=== PATIENT | male | born 1940 | race Two or more races ===

== ENCOUNTER 2023-10-13 15:40 | Inpatient (IN) | payer MEDICARE, OTHER ==
[~2023-10-13] VITALS: Ht 162.6 cm; Wt 80.3 kg
[2023-10-13] MEDS ORDERED: DEXT15DR6 EACHEYE (16:30)
[2023-10-13] MEDS ORDERED: POLY15DR40 EACHEYE (16:30)
[2023-10-13] MEDS ORDERED: MAG30ORA PO (16:30)
[2023-10-13] MEDS ORDERED: ACET-868 PO (16:30)
[2023-10-13] MEDS ORDERED: DIVA125C2 PO (16:30)
[2023-10-13] MEDS ORDERED: CEPH500C2 PO (16:30)
[2023-10-13] MEDS ORDERED: LOSA50TA39 PO (16:30)
[2023-10-13] MEDS ORDERED: TRAZ-182 PO (16:30)
[2023-10-13] MEDS ORDERED: ASPI-1169 PO (16:30)
[2023-10-13] MEDS ORDERED: HYDR-500 PO (16:30)
[2023-10-13] MEDS ORDERED: PIPERACILLIN /TAZOBACTAM 3.375 G in IV D5W 50 ML IV ONE (16:30)
[2023-10-13] MEDS ORDERED: DOCU-141 PO (16:30)
[2023-10-13] MEDS ORDERED: POTA20PA3 PO (16:30)
[2023-10-13] MEDS ORDERED: CELE200C PO (16:30)
[2023-10-13] MEDS ORDERED: TAMS-12 PO (16:30)
[2023-10-13] MEDS ORDERED: MULT-594 PO (16:30)
[2023-10-13] MEDS ORDERED: PSYL3.4P6 PO (16:30)
[2023-10-13] MEDS ORDERED: FURO-144 PO (16:30)
[2023-10-13] MEDS ORDERED: IPRA3AMP23 IH (16:30)
[2023-10-13] MEDS ORDERED: CARB1TAB21 PO (16:30)
[2023-10-13] MEDS ORDERED: RISP0.2515 PO ×2 (16:30)
[2023-10-13] MEDS ORDERED: MAGN400O6 PO (16:30)
[2023-10-13] MEDS ORDERED: FAMO20TA8 PO (16:30)
[2023-10-13] MEDS ORDERED: MELA5TAB PO (16:30)
[2023-10-13] MEDS ORDERED: BENZ0.5T43 PO (16:30)
[2023-10-13] MEDS ORDERED: ACET-2605 PO (16:30)
[2023-10-13] MEDS ORDERED: VANCOMYCIN 1 GM in IV D5W 250 ML IV ONE (16:30)
[2023-10-13] MEDS ORDERED: NA P133E RC (16:30)
[2023-10-13] MEDS ORDERED: TEA30SPR TP (16:30)
[2023-10-13] MEDS ORDERED: FINA5TAB11 PO (16:30)
[2023-10-13] MEDS ORDERED: FLUT1DIS IH (16:30)
[2023-10-13] MEDS ORDERED: ATOR10TA PO (16:30)
[2023-10-13] MEDS ORDERED: BISA10SU11 RC (16:30)
[2023-10-13 16:38] LABS: BASOPHILS % (AUTO) 0.2 % (0.0-2.0); EOSINOPHILS % (AUTO) 0.1 % (0.0-6.0); HEMATOCRIT 36 % (39-51); HEMOGLOBIN 11.7 g/dL (13.5-17.5); LYMPHOCYTES # (AUTO) 1.4 K/uL (0.8-4.8); LYMPHOCYTES % (AUTO) 7.5 % (20.0-44.0); MEAN CORPUSCULAR HEMOGLOBIN 31 PG (26.0-33.0); MEAN CORPUSCULAR HGB CONC 32 g/dl (31.0-36.0); MEAN CORPUSCULAR VOLUME 97 fL (80-96); MONOCYTES # (AUTO) 2.3 K/uL (0.1-1.30); MONOCYTES % (AUTO) 12.2 % (2.0-12.0); NEUTROPHILS # (AUTO) 14.9 K/uL (1.8-8.9); PLATELET COUNT (AUTO) 134 K/uL (150-450); RED BLOOD CELL COUNT(AUTO) 3.76 MIL/uL (4.5-6.0); RED CELL DISTRIBUTION WIDTH 15.7 % (11.5-15.0); WHITE BLOOD COUNT (AUTO) 18.7 K/uL (4.3-11.0)
[2023-10-13] MEDS ORDERED: AZITHROMYCIN 500 MG in IV D5W 250 ML IV ONE (17:00)
[2023-10-13 17:10] LABS: CALCIUM, SERUM 9.2 mg/dL (8.5-10.1); CARBON DIOXIDE 29 mmol/L (21-32); CHLORIDE 117 mmol/L (98-107); CREATININE 1.3 mg/dL (0.6-1.3); GLUCOSE 143 mg/dL (74-106); POTASSIUM 3.3 mmol/L (3.5-5.1); SODIUM SERUM 153 mmol/L (136-145); UREA NITROGEN, BLOOD 44 mg/dL (7-18)
[2023-10-13 17:22] LABS: ALANINE AMINOTRANSFERASE < 6 U/L (12-78); ALBUMIN 1.8 g/dL (3.4-5.0); ALKALINE PHOSPHATASE 99 U/L (46-116); ASPARTATE AMINOTRANSFERASE 20 U/L (15-37); BILIRUBIN,DIRECT 0.3 mg/dL (0.0-0.2); BILIRUBIN,TOTAL 0.6 mg/dL (0.2-1.0); TOTAL PROTEIN, SERUM 6.8 g/dL (6.4-8.2)
[2023-10-13] MEDS ORDERED: AZITHROMYCIN 500 MG VIAL ONE (19:39)
[2023-10-14] MEDS ORDERED: FLUTICASONE/SALMETEROL 1 DISK IH SCH
[2023-10-14] MEDS ORDERED: ONDANSETRON HCL/PF 4 MG/2 ML VIAL IVP PRN
[2023-10-14] MEDS ORDERED: ACETAMINOPHEN 325 MG TABLET PO PRN
[2023-10-14] MEDS ORDERED: Medication Not On Formulary EA (Ipratropium/Albuterol Sulfate (Duoneb 2.5-0.5 Mg/3 Ml So XX PRN
[2023-10-14 00:55] VITALS: BP 149/60; TEMP 97.6; O2SAT 98
[2023-10-14] MEDS ORDERED: POTASSIUM CHLORIDE 20 MEQ TAB.PRT.SR PO ONE ×3 (01:42→14:02)
[2023-10-14] MEDS ORDERED: BENZTROPINE MESYLATE (1 MG) 1 MG TABLET PO ONE (01:57)
[2023-10-14] MEDS ORDERED: IPRATROPIUM NEB FS 0.5 MG/2.5 ML AMPUL.NEB IH PRN (02:30)
[2023-10-14] MEDS ORDERED: ALBUTEROL FS 2.5 MG/0.5 ML VIAL.NEB NEB PRN (02:30)
[2023-10-14] MEDS ORDERED: CEFTRIAXONE 1GM BAG (ER ONLY) 50 ML IV ONE (02:43)
[2023-10-14] MEDS ORDERED: ENOXAPARIN SODIUM 40 MG/0.4 ML DISP.SYRIN SQ ONE ×2 (02:43→22:05)
[2023-10-14] MEDS ORDERED: BENZTROPINE MESYLATE (1 MG) 1 MG TABLET ONE (02:43)
[2023-10-14] MEDS ORDERED: ATORVASTATIN 10 MG TABLET ONE ×2 (02:43→22:06)
[2023-10-14] MEDS ORDERED: risperiDONE 0.25 MG TABLET PO ONE ×2 (02:44→22:06)
[2023-10-14] MEDS ORDERED: TAMSULOSIN 0.4 MG CAP.SR.24H ONE ×3 (02:45→17:18)
[2023-10-14] MEDS ORDERED: risperiDONE 1 MG TABLET ONE ×3 (02:45→22:06)
[2023-10-14] MEDS ORDERED: TRAZODONE 50 MG TABLET ONE ×2 (02:46→22:07)
[2023-10-14] MEDS: CEFTRIAXONE 1 G in IV D5W 50 ML IV SCH ×2 (03:18→22:30)
[2023-10-14] MEDS: TAMSULOSIN 0.4 MG CAP.SR.24H PO SCH ×3 (03:19→17:16)
[2023-10-14] MEDS: ATORVASTATIN 10 MG TABLET PO SCH ×2 (03:19→22:30)
[2023-10-14] MEDS: risperiDONE 0.25 MG TABLET PO SCH ×2 (03:20→22:30)
[2023-10-14] MEDS: TRAZODONE 50 MG TABLET PO SCH ×2 (03:20→22:30)
[2023-10-14] MEDS: ENOXAPARIN SODIUM 40 MG/0.4 ML DISP.SYRIN SQ SCH ×2 (03:21→22:30)
[2023-10-14] MEDS ORDERED: CARBIDOPA/LEVODOPA 25/100 MG 1 UDTAB ONE (04:16)
[2023-10-14] MEDS ORDERED: DIVALPROEX SODIUM 125 MG CAP.SPRINK ONE (04:17)
[2023-10-14] MEDS: DIVALPROEX SODIUM 125 MG CAP.SPRINK PO SCH ×4 (04:38→17:15)
[2023-10-14] MEDS: CARBIDOPA/LEVODOPA 25/100 MG 1 UDTAB PO SCH ×3 (04:38→17:30)
[2023-10-14] MEDS ORDERED: FAMOTIDINE (20 MG) 20 MG TABLET ONE (07:43)
[2023-10-14] MEDS: FAMOTIDINE (20 MG) 20 MG TABLET PO SCH (07:44)
[2023-10-14 07:59] LABS: BASOPHILS % (AUTO) 0.1 % (0.0-2.0); HEMATOCRIT 37 % (39-51); LYMPHOCYTES # (AUTO) 0.9 K/uL (0.8-4.8); LYMPHOCYTES % (AUTO) 6.5 % (20.0-44.0); MEAN CORPUSCULAR HEMOGLOBIN 31 PG (26.0-33.0); MEAN CORPUSCULAR HGB CONC 32 g/dl (31.0-36.0); MEAN CORPUSCULAR VOLUME 95 fL (80-96); MONOCYTES # (AUTO) 1.9 K/uL (0.1-1.30); MONOCYTES % (AUTO) 13.5 % (2.0-12.0); NEUTROPHILS # (AUTO) 11.2 K/uL (1.8-8.9); NEUTROPHILS % (AUTO) 79.9 % (43.0-81.0); PLATELET COUNT (AUTO) 153 K/uL (150-450); RED CELL DISTRIBUTION WIDTH 15.4 % (11.5-15.0)
[2023-10-14 08:30] LABS: CALCIUM, SERUM 9.3 mg/dL (8.5-10.1); CREATININE 1.2 mg/dL (0.6-1.3); MAGNESIUM 2.8 mg/dL (1.8-2.4); PHOSPHORUS 4.6 mg/dL (2.5-4.9); POTASSIUM 3.4 mmol/L (3.5-5.1)
[2023-10-14] MEDS ORDERED: MULTIVITAMINS,THERAGRAN 1 UDTAB TABLET ONE (09:33)
[2023-10-14] MEDS ORDERED: DOCUSATE SODIUM 100 MG CAPSULE PO ONE (09:34)
[2023-10-14] MEDS ORDERED: DIVALPROEX SODIUM 250 MG TABLET.DR PO ONE (09:34)
[2023-10-14] MEDS ORDERED: CELECOXIB 100 MG CAPSULE ONE (09:34)
[2023-10-14] MEDS ORDERED: LOSARTAN POTASSIUM 50 MG TABLET ONE (09:34)
[2023-10-14] MEDS ORDERED: ASPIRIN 81 MG TAB.CHEW ONE (09:35)
[2023-10-14] MEDS: POLYVINYL ALCOHOL 15 ML BOTTLE EACHEYE SCH ×3 (09:42→17:14)
[2023-10-14] MEDS: CELECOXIB 100 MG CAPSULE PO SCH (09:44)
[2023-10-14] MEDS: FINASTERIDE (5 MG) 5 MG TABLET PO SCH (09:44)
[2023-10-14] MEDS: risperiDONE 1 MG TABLET PO SCH (09:44)
[2023-10-14] MEDS: ASPIRIN 81 MG TAB.CHEW PO SCH (09:44)
[2023-10-14] MEDS: LOSARTAN POTASSIUM 50 MG TABLET PO SCH (09:44)
[2023-10-14] MEDS: DOCUSATE SODIUM 100 MG CAPSULE PO SCH (09:44)
[2023-10-14] MEDS: MULTIVITAMINS,THERAGRAN 1 UDTAB TABLET PO SCH (09:47)
[2023-10-14] MEDS: FLUTICASONE/VILANTEROL 1 EACH BLST.W.DEV IH SCH (09:47)
[2023-10-14] MEDS: LANOLIN/MIN OIL/PETROLAT,WHT 3.5 GM TUBE EACHEYE SCH ×2 (09:48→17:14)
[2023-10-14] MEDS: PSYLLIUM SEED 1 PKT PACKET PO SCH (09:48)
[2023-10-14] MEDS ORDERED: POTASSIUM CHLORIDE 20 MEQ TAB.PRT.SR PO SCH (12:00)
[2023-10-14] MEDS ORDERED: VANCOMYCIN 1 GM /D5W 250 ML PB IV ONE (16:36)
[2023-10-14] MEDS: VANCOMYCIN 1.25 GM in IV D5W 250 ML IV SCH (16:54)
[2023-10-14] MEDS: AZITHROMYCIN 500 MG in IV D5W 250 ML IV SCH (19:30)
[2023-10-15] MEDS: IV D5/0.45 NACL 1,000 ML IV PRN ×2 (01:53→15:32)
[2023-10-15 05:12] VITALS: BP 142/72; TEMP 97.6; O2SAT 93
[2023-10-15 07:15] LABS: CALCIUM, SERUM 8.6 mg/dL (8.5-10.1); CARBON DIOXIDE 30 mmol/L (21-32); CHLORIDE 118 mmol/L (98-107); CREATININE 1.1 mg/dL (0.6-1.3); GLUCOSE 117 mg/dL (74-106); POTASSIUM 3.4 mmol/L (3.5-5.1); SODIUM SERUM 154 mmol/L (136-145); UREA NITROGEN, BLOOD 40 mg/dL (7-18)
[2023-10-15 08:00] VITALS: BP 134/63; TEMP 98.6; O2SAT 96
[2023-10-15] MEDS: FAMOTIDINE (20 MG) 20 MG TABLET PO SCH (08:43)
[2023-10-15] MEDS: ASPIRIN 81 MG TAB.CHEW PO SCH (08:43)
[2023-10-15] MEDS: risperiDONE 1 MG TABLET PO SCH (08:43)
[2023-10-15] MEDS: PSYLLIUM SEED 1 PKT PACKET PO SCH (08:43)
[2023-10-15] MEDS: DOCUSATE SODIUM 100 MG CAPSULE PO SCH (08:43)
[2023-10-15] MEDS: TAMSULOSIN 0.4 MG CAP.SR.24H PO SCH ×2 (08:43→16:11)
[2023-10-15] MEDS: FINASTERIDE (5 MG) 5 MG TABLET PO SCH (08:44)
[2023-10-15] MEDS: CARBIDOPA/LEVODOPA 25/100 MG 1 UDTAB PO SCH ×2 (08:44→16:11)
[2023-10-15] MEDS: DIVALPROEX SODIUM 125 MG CAP.SPRINK PO SCH ×3 (08:44→16:11)
[2023-10-15] MEDS: CELECOXIB 100 MG CAPSULE PO SCH (08:44)
[2023-10-15] MEDS: MULTIVITAMINS,THERAGRAN 1 UDTAB TABLET PO SCH (08:44)
[2023-10-15] MEDS: LOSARTAN POTASSIUM 50 MG TABLET PO SCH (08:44)
[2023-10-15] MEDS: POLYVINYL ALCOHOL 15 ML BOTTLE EACHEYE SCH ×3 (08:53→16:11)
[2023-10-15] MEDS: LANOLIN/MIN OIL/PETROLAT,WHT 3.5 GM TUBE EACHEYE SCH ×2 (08:53→16:12)
[2023-10-15] MEDS: FLUTICASONE/VILANTEROL 1 EACH BLST.W.DEV IH SCH (08:53)
[2023-10-15 09:59] LABS: BASOPHILS % (AUTO) 0.1 % (0.0-2.0); EOSINOPHILS % (AUTO) 0.2 % (0.0-6.0); HEMATOCRIT 37 % (39-51); HEMOGLOBIN 11.6 g/dL (13.5-17.5); LYMPHOCYTES # (AUTO) 0.8 K/uL (0.8-4.8); LYMPHOCYTES % (AUTO) 8.1 % (20.0-44.0); MEAN CORPUSCULAR HEMOGLOBIN 31 PG (26.0-33.0); MEAN CORPUSCULAR HGB CONC 31 g/dl (31.0-36.0); MEAN CORPUSCULAR VOLUME 100 fL (80-96); MONOCYTES # (AUTO) 0.9 K/uL (0.1-1.30); NEUTROPHILS # (AUTO) 7.7 K/uL (1.8-8.9); NEUTROPHILS % (AUTO) 81.6 % (43.0-81.0); PLATELET COUNT (AUTO) 136 K/uL (150-450); RED BLOOD CELL COUNT(AUTO) 3.71 MIL/uL (4.5-6.0); RED CELL DISTRIBUTION WIDTH 16.9 % (11.5-15.0); WHITE BLOOD COUNT (AUTO) 9.4 K/uL (4.3-11.0)
[2023-10-15] MEDS ORDERED: POTASSIUM CHLORIDE 20 MEQ TAB.PRT.SR PO SCH (11:00)
[2023-10-15] MEDS: VANCOMYCIN 1.25 GM in IV D5W 250 ML IV SCH (15:27)
[2023-10-15 16:00] VITALS: BP 105/48; TEMP 98.6; O2SAT 97
[2023-10-15 20:00] VITALS: BP 103/50; TEMP 98.6; O2SAT 96
[2023-10-15] MEDS: AZITHROMYCIN 500 MG in IV D5W 250 ML IV SCH (20:08)
[2023-10-15] MEDS: CEFTRIAXONE 1 G in IV D5W 50 ML IV SCH (21:27)
[2023-10-15] MEDS: ENOXAPARIN SODIUM 40 MG/0.4 ML DISP.SYRIN SQ SCH (21:33)
[2023-10-15] MEDS: TRAZODONE 50 MG TABLET PO SCH (22:06)
[2023-10-15] MEDS: ATORVASTATIN 10 MG TABLET PO SCH (22:06)
[2023-10-15] MEDS: risperiDONE 0.25 MG TABLET PO SCH (22:09)
[2023-10-16] VITALS: BP 113/45; TEMP 98.3; O2SAT 96
[2023-10-16 00:08] VITALS: BP 113/45; TEMP 98.3; O2SAT 93
[2023-10-16 04:00] VITALS: BP 118/68; TEMP 98.1; O2SAT 96
[2023-10-16 04:15] VITALS: BP 118/68; TEMP 98.1; O2SAT 93
[2023-10-16 07:25] LABS: BASOPHILS % (AUTO) 0.1 % (0.0-2.0); EOSINOPHILS % (AUTO) 0.3 % (0.0-6.0); HEMATOCRIT 35 % (39-51); HEMOGLOBIN 11.5 g/dL (13.5-17.5); LYMPHOCYTES % (AUTO) 10.7 % (20.0-44.0); MEAN CORPUSCULAR HEMOGLOBIN 32 PG (26.0-33.0); MEAN CORPUSCULAR HGB CONC 33 g/dl (31.0-36.0); MEAN CORPUSCULAR VOLUME 97 fL (80-96); MONOCYTES % (AUTO) 10.8 % (2.0-12.0); NEUTROPHILS % (AUTO) 78.1 % (43.0-81.0); PLATELET COUNT (AUTO) 147 K/uL (150-450); RED BLOOD CELL COUNT(AUTO) 3.63 MIL/uL (4.5-6.0); RED CELL DISTRIBUTION WIDTH 15.5 % (11.5-15.0)
[2023-10-16 07:30] VITALS: BP 146/63; TEMP 98; O2SAT 98
[2023-10-16 07:37] LABS: CALCIUM, SERUM 8.2 mg/dL (8.5-10.1); CREATININE 1.2 mg/dL (0.6-1.3); POTASSIUM 3.6 mmol/L (3.5-5.1)
[2023-10-16] MEDS: ASPIRIN 81 MG TAB.CHEW PO SCH (08:45)
[2023-10-16] MEDS: FLUTICASONE/VILANTEROL 1 EACH BLST.W.DEV IH SCH (08:45)
[2023-10-16] MEDS: LANOLIN/MIN OIL/PETROLAT,WHT 3.5 GM TUBE EACHEYE SCH ×2 (08:46→16:15)
[2023-10-16] MEDS: POLYVINYL ALCOHOL 15 ML BOTTLE EACHEYE SCH ×3 (08:46→16:15)
[2023-10-16] MEDS: DOCUSATE SODIUM 100 MG CAPSULE PO SCH (08:47)
[2023-10-16] MEDS: CARBIDOPA/LEVODOPA 25/100 MG 1 UDTAB PO SCH ×2 (08:47→16:15)
[2023-10-16] MEDS: MULTIVITAMINS,THERAGRAN 1 UDTAB TABLET PO SCH (08:47)
[2023-10-16] MEDS: FINASTERIDE (5 MG) 5 MG TABLET PO SCH (08:47)
[2023-10-16] MEDS: PSYLLIUM SEED 1 PKT PACKET PO SCH (08:47)
[2023-10-16] MEDS: LOSARTAN POTASSIUM 50 MG TABLET PO SCH (08:47)
[2023-10-16] MEDS: DIVALPROEX SODIUM 125 MG CAP.SPRINK PO SCH ×3 (08:47→16:28)
[2023-10-16] MEDS: risperiDONE 1 MG TABLET PO SCH (08:47)
[2023-10-16] MEDS: TAMSULOSIN 0.4 MG CAP.SR.24H PO SCH ×2 (08:47→16:15)
[2023-10-16] MEDS: CELECOXIB 100 MG CAPSULE PO SCH (08:48)
[2023-10-16] MEDS: FAMOTIDINE (20 MG) 20 MG TABLET PO SCH (08:49)
[2023-10-16] MEDS: IV D5/0.45 NACL 1,000 ML IV PRN (09:00)
[2023-10-16] MEDS: VANCOMYCIN 1.25 GM in IV D5W 250 ML IV SCH (15:48)
[2023-10-16 16:00] VITALS: BP 117/49; TEMP 98.2; O2SAT 98
[2023-10-16] MEDS: AZITHROMYCIN 250 MG TABLET PO SCH (19:40)
[2023-10-16] MEDS: MUPIROCIN OINT 2% 22 GM TUBE NS SCH (20:01)
[2023-10-16] MEDS: risperiDONE 0.25 MG TABLET PO SCH (21:16)
[2023-10-16] MEDS: TRAZODONE 50 MG TABLET PO SCH (21:16)
[2023-10-16] MEDS: ATORVASTATIN 10 MG TABLET PO SCH (21:16)
[2023-10-16] MEDS: CEFTRIAXONE 1 G in IV D5W 50 ML IV SCH (21:29)
[2023-10-16] MEDS ORDERED: ENOXAPARIN SODIUM 40 MG/0.4 ML DISP.SYRIN SQ ONE (21:30)
[2023-10-16] MEDS: ENOXAPARIN SODIUM 40 MG/0.4 ML DISP.SYRIN SQ SCH (21:52)
[2023-10-17] MEDS: IV D5/0.45 NACL 1,000 ML IV PRN (03:06)
[2023-10-17 06:38] LABS: BASOPHILS % (AUTO) 0.1 % (0.0-2.0); EOSINOPHILS % (AUTO) 0.3 % (0.0-6.0); HEMATOCRIT 35 % (39-51); HEMOGLOBIN 11.5 g/dL (13.5-17.5); LYMPHOCYTES # (AUTO) 0.9 K/uL (0.8-4.8); LYMPHOCYTES % (AUTO) 10.7 % (20.0-44.0); MEAN CORPUSCULAR HEMOGLOBIN 32 PG (26.0-33.0); MEAN CORPUSCULAR HGB CONC 33 g/dl (31.0-36.0); MEAN CORPUSCULAR VOLUME 97 fL (80-96); MONOCYTES # (AUTO) 0.8 K/uL (0.1-1.30); NEUTROPHILS # (AUTO) 6.6 K/uL (1.8-8.9); NEUTROPHILS % (AUTO) 78.9 % (43.0-81.0); PLATELET COUNT (AUTO) 136 K/uL (150-450); RED BLOOD CELL COUNT(AUTO) 3.65 MIL/uL (4.5-6.0); RED CELL DISTRIBUTION WIDTH 15.8 % (11.5-15.0); WHITE BLOOD COUNT (AUTO) 8.4 K/uL (4.3-11.0)
[2023-10-17 06:57] LABS: CALCIUM, SERUM 8.2 mg/dL (8.5-10.1); CREATININE 1.1 mg/dL (0.6-1.3); POTASSIUM 3.6 mmol/L (3.5-5.1)
[2023-10-17 07:30] VITALS: BP 128/51; TEMP 98.1; O2SAT 97
[2023-10-17] MEDS: FAMOTIDINE (20 MG) 20 MG TABLET PO SCH (09:42)
[2023-10-17] MEDS: LOSARTAN POTASSIUM 50 MG TABLET PO SCH (09:43)
[2023-10-17] MEDS: CELECOXIB 100 MG CAPSULE PO SCH (09:43)
[2023-10-17] MEDS: risperiDONE 1 MG TABLET PO SCH (09:43)
[2023-10-17] MEDS: ASPIRIN 81 MG TAB.CHEW PO SCH (09:44)
[2023-10-17] MEDS: MULTIVITAMINS,THERAGRAN 1 UDTAB TABLET PO SCH (09:44)
[2023-10-17] MEDS: FINASTERIDE (5 MG) 5 MG TABLET PO SCH (09:44)
[2023-10-17] MEDS: CARBIDOPA/LEVODOPA 25/100 MG 1 UDTAB PO SCH ×2 (09:45→18:09)
[2023-10-17] MEDS: TAMSULOSIN 0.4 MG CAP.SR.24H PO SCH ×2 (09:45→18:09)
[2023-10-17] MEDS: DOCUSATE SODIUM 100 MG CAPSULE PO SCH (09:45)
[2023-10-17] MEDS: DIVALPROEX SODIUM 125 MG CAP.SPRINK PO SCH ×3 (09:46→18:09)
[2023-10-17] MEDS: POLYVINYL ALCOHOL 15 ML BOTTLE EACHEYE SCH ×3 (09:47→18:10)
[2023-10-17] MEDS: FLUTICASONE/VILANTEROL 1 EACH BLST.W.DEV IH SCH (09:47)
[2023-10-17] MEDS: LANOLIN/MIN OIL/PETROLAT,WHT 3.5 GM TUBE EACHEYE SCH ×2 (09:47→18:10)
[2023-10-17] MEDS: PSYLLIUM SEED 1 PKT PACKET PO SCH (09:48)
[2023-10-17] MEDS: MUPIROCIN OINT 2% 22 GM TUBE NS SCH ×2 (09:50→20:27)
[2023-10-17] MEDS: VANCOMYCIN 1.25 GM in IV D5W 250 ML IV SCH (10:01)
[2023-10-17 16:00] VITALS: BP 122/58; TEMP 97.7; O2SAT 98
[2023-10-17 20:00] VITALS: BP 128/64; TEMP 97.7; O2SAT 96
[2023-10-17] MEDS: AZITHROMYCIN 250 MG TABLET PO SCH (20:27)
[2023-10-17] MEDS: CEFTRIAXONE 1 G in IV D5W 50 ML IV SCH (21:24)
[2023-10-17] MEDS: risperiDONE 0.25 MG TABLET PO SCH (21:25)
[2023-10-17] MEDS: ATORVASTATIN 10 MG TABLET PO SCH (21:25)
[2023-10-17] MEDS: TRAZODONE 50 MG TABLET PO SCH (21:26)
[2023-10-17] MEDS: ENOXAPARIN SODIUM 40 MG/0.4 ML DISP.SYRIN SQ SCH (21:28)
[2023-10-18] VITALS: BP 123/56; TEMP 97.6; O2SAT 95
[2023-10-18] MEDS: VANCOMYCIN 1.25 GM in IV D5W 250 ML IV SCH (03:41)
[2023-10-18 04:00] VITALS: BP 129/57; TEMP 97.8; O2SAT 97
[2023-10-18 04:23] VITALS: BP 129/57; TEMP 97.8; O2SAT 97
[2023-10-18 07:07] LABS: CALCIUM, SERUM 8.2 mg/dL (8.5-10.1); CREATININE 0.9 mg/dL (0.6-1.3)
[2023-10-18 07:14] LABS: BASOPHILS % (AUTO) 0.2 % (0.0-2.0); EOSINOPHILS # (AUTO) 0.2 K/uL (0.0-0.7); EOSINOPHILS % (AUTO) 1.2 % (0.0-6.0); HEMATOCRIT 36 % (39-51); HEMOGLOBIN 11.4 g/dL (13.5-17.5); LYMPHOCYTES # (AUTO) 1.5 K/uL (0.8-4.8); LYMPHOCYTES % (AUTO) 9.8 % (20.0-44.0); MEAN CORPUSCULAR HEMOGLOBIN 31 PG (26.0-33.0); MEAN CORPUSCULAR HGB CONC 32 g/dl (31.0-36.0); MEAN CORPUSCULAR VOLUME 97 fL (80-96); MONOCYTES # (AUTO) 1.1 K/uL (0.1-1.30); MONOCYTES % (AUTO) 7.4 % (2.0-12.0); NEUTROPHILS # (AUTO) 12.4 K/uL (1.8-8.9); NEUTROPHILS % (AUTO) 81.4 % (43.0-81.0); PLATELET COUNT (AUTO) 168 K/uL (150-450); RED BLOOD CELL COUNT(AUTO) 3.73 MIL/uL (4.5-6.0); RED CELL DISTRIBUTION WIDTH 15.8 % (11.5-15.0); WHITE BLOOD COUNT (AUTO) 15.2 K/uL (4.3-11.0)
[2023-10-18 07:30] VITALS: BP 133/56; TEMP 97.7; O2SAT 99
[2023-10-18] MEDS: FAMOTIDINE (20 MG) 20 MG TABLET PO SCH (07:52)
[2023-10-18 08:41] VITALS: BP 133/56
[2023-10-18] MEDS: DOCUSATE SODIUM 100 MG CAPSULE PO SCH (08:41)
[2023-10-18] MEDS: FINASTERIDE (5 MG) 5 MG TABLET PO SCH (08:41)
[2023-10-18] MEDS: CELECOXIB 100 MG CAPSULE PO SCH (08:41)
[2023-10-18] MEDS: TAMSULOSIN 0.4 MG CAP.SR.24H PO SCH (08:41)
[2023-10-18] MEDS: LOSARTAN POTASSIUM 50 MG TABLET PO SCH (08:41)
[2023-10-18] MEDS: MULTIVITAMINS,THERAGRAN 1 UDTAB TABLET PO SCH (08:42)
[2023-10-18] MEDS: ASPIRIN 81 MG TAB.CHEW PO SCH (08:42)
[2023-10-18] MEDS: CARBIDOPA/LEVODOPA 25/100 MG 1 UDTAB PO SCH (08:42)
[2023-10-18] MEDS: risperiDONE 1 MG TABLET PO SCH (08:42)
[2023-10-18] MEDS: DIVALPROEX SODIUM 125 MG CAP.SPRINK PO SCH ×2 (08:42→12:21)
[2023-10-18] MEDS: PSYLLIUM SEED 1 PKT PACKET PO SCH (08:42)
[2023-10-18] MEDS: FLUTICASONE/VILANTEROL 1 EACH BLST.W.DEV IH SCH (08:43)
[2023-10-18] MEDS: POLYVINYL ALCOHOL 15 ML BOTTLE EACHEYE SCH ×2 (08:43→12:22)
[2023-10-18] MEDS: LANOLIN/MIN OIL/PETROLAT,WHT 3.5 GM TUBE EACHEYE SCH (08:43)
[2023-10-18] MEDS: MUPIROCIN OINT 2% 22 GM TUBE NS SCH (08:44)
[2023-10-18] MEDS: PROSOURCE / PROSTAT (PYXIS) 30 ML UDC PO SCH ×2 (09:30→12:22)
[2023-10-18] MEDS: IV D5/0.45 NACL 1,000 ML IV PRN (09:40)
[2023-10-18 10:50] VITALS: TEMP 97.7
[2023-10-18] MEDS ORDERED: IPRA0.2S9 IH (13:59)
[2023-10-18] MEDS ORDERED: ALBU2.5V13 NEB (13:59)
[2023-10-18] MEDS ORDERED: [UNRECOGNIZED DRUG - CODE] IV (13:59)
[2023-10-18] MEDS ORDERED: VANC1.2526 IV (13:59)
[2023-10-18] MEDS ORDERED: CEFT1VIA15 IV (13:59)
[2023-10-18] MEDS ORDERED: MUPI22OI7 NS (13:59)
== END 2023-10-18 16:15 | DRG 871 ==
LOC: ER 15:40 → TRANSITION 10-14 01:18 → MED 10-14 22:30 → TELE 10-15 01:00 → MED 10-18 11:50
PROVIDERS: ADMIT Nurse Practitioner Acute Care; ATTEND Nurse Practitioner Acute Care
DX: A41.9 Sepsis, unspecified organism (principal); E43 Unspecified severe protein-calorie malnutrition; J15.9 Unspecified bacterial pneumonia; J69.0 Pneumonitis due to inhalation of food and vomit; L03.116 Cellulitis of left lower limb; E87.0 Hyperosmolality and hypernatremia; J44.0 Chronic obstructive pulmonary disease with (acute) lower respiratory infection; D64.9 Anemia, unspecified; E87.6 Hypokalemia; E88.09 Other disorders of plasma-protein metabolism, not elsewhere classified; F03.90 Unspecified dementia, unspecified severity, without behavioral disturbance, psychotic disturbance, mood disturbance, and anxiety; K21.9 Gastro-esophageal reflux disease without esophagitis; N40.0 Benign prostatic hyperplasia without lower urinary tract symptoms; Z79.82 Long term (current) use of aspirin; Z20.822 Contact with and (suspected) exposure to COVID-19; Z68.30 Body mass index [BMI] 30.0-30.9, adult; S81.802A Unspecified open wound, left lower leg, initial encounter; X58.XXXA Exposure to other specified factors, initial encounter; Y93.9 Activity, unspecified; Y92.129 Unspecified place in nursing home as the place of occurrence of the external cause
CPT/HCPCS: 36415; 71045-TC; 71250-TC; 73590-TC; 80048-TC; 80061-TC; 80076-TC; 80202-TC; 83735-TC; 84100-TC; 85025-TC; 85652-TC; 86140-TC; 87040-TC; 87081-TC; A4223; G0378; J0456; J0696; J1650; J2405; J2543; J3370; J3490; J7042; J7060